=== PATIENT | female | born 1985 ===

== ENCOUNTER 2016-08-05 14:25 | Outpatient (CLI) | payer BC | END 2016-08-05 14:26 | disposition home or self-care (01) | LOC: NC 14:25 | PROVIDERS: ATTEND Physical Medicine & Rehabilitation | DX: E11.65 Type 2 diabetes mellitus with hyperglycemia (principal); Z71.3 Dietary counseling and surveillance; Z68.36 Body mass index [BMI] 36.0-36.9, adult; K80.20 Calculus of gallbladder without cholecystitis without obstruction; Z79.4 Long term (current) use of insulin ==